=== PATIENT | male | born 1960 | race Caucasian/White ===

== ENCOUNTER 2017-12-27 19:48 | Emergency (ER) | payer OTHER ==
[2017-12-27] MEDS ORDERED: HYDROMORPHONE HCL 2 MG/ML SOL IV ONE ×2 (19:55→20:22)
[2017-12-27] MEDS ORDERED: HYDROMORPHONE HCL 2 MG/ML SOL ONE ×2 (19:56→20:24)
[2017-12-27] MEDS ORDERED: SODIUM CHLORIDE 0.9% FLUSH 10 ML SOL IV PRN (20:05)
[2017-12-27] MEDS ORDERED: SODIUM CHLORIDE 0.9% 1000ML 1,000 ML IV ONE (20:21)
[2017-12-27] MEDS ORDERED: DIAZEPAM 5MG/ML SOL IV ONE (20:22)
[2017-12-27] MEDS ORDERED: LORAZEPAM 2 MG/ML SOL ONE (20:30)
[2017-12-27] MEDS ORDERED: LORAZEPAM 2 MG/ML SOL IV ONE (20:34)
[2017-12-27 21:21] VITALS: TEMP 98.9
[2017-12-27 21:24] VITALS: BP 102/78; PULSE 90; RESP 20; O2SAT 93
[2017-12-27] MEDS ORDERED: TDAP VACCINE 0.5 ML SUS IM ONE ×2 (21:27→21:33)
== END 2017-12-27 21:57 | disposition home or self-care (01) | DRG 563 ==
LOC: ED 19:48
DX: S43.015A Anterior dislocation of left humerus, initial encounter (principal); W00.0XXA Fall on same level due to ice and snow, initial encounter
CPT/HCPCS: 73020; 73030; 90715; 99285; J1170; J2060

== ENCOUNTER 2018-01-03 08:23 | Outpatient (CLI) | payer OTHER ==
[2017-12-27 21:24] VITALS: O2SAT 93
== END 2018-01-03 08:24 | disposition home or self-care (01) | DRG 563 ==
LOC: CONVCARE 08:23
PROVIDERS: ATTEND Orthopaedic Surgery
DX: S43.005A Unspecified dislocation of left shoulder joint, initial encounter (principal)
CPT/HCPCS: 73020